=== PATIENT | female | born 1995 | race Caucasian/White ===

== ENCOUNTER 2017-09-14 12:04 | Emergency (ER) | payer SELFPAY ==
--- NOTE | 2017-09-14 13:40 | EDPHYS ---
Physician Documentation [facility] Name: Kati Albarran Age: 22 yrs Sex: Female : 1995 Arrival Date: 09/14/2017 Time: 12:07 Bed 11 Private MD: None, None ED Physician Jarvis Garcia HPI: 09/14 12:35 This 22 yrs old Female presents to ER via Ambulatory with complaints of Flu cp Symptoms. 12:35 Onset: The symptoms/episode began/occurred 4 day(s) ago. cp 12:35 Associated signs and symptoms: Pertinent positives: cough, fever, sore throat, cp Pertinent negatives: abdominal pain, constipation, diarrhea, vomiting, wheezing. 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 - Social history:: Smoking status: Patient uses tobacco products, smokes one pack cigarettes per day. - Ebola Screening: : No symptoms or risks identified at this time. ROS: 12:42 Constitutional: Positive for body aches, Negative for fever, poor PO intake. cp 12:42 Eyes: Negative for injury, pain, redness, and discharge. cp 12:42 ENT: Positive for sinus congestion, sore throat, Negative for drainage from ear(s), ear pain, difficulty swallowing, difficulty handling secretions, hoarseness. 12:42 Neck: Negative for pain with movement, pain at rest, stiffness, tenderness. 12:42 Cardiovascular: Negative for chest pain. 12:42 Respiratory: Positive for cough, Negative for shortness of breath, wheezing. 12:42 Abdomen/GI: Negative for abdominal pain, vomiting, diarrhea, constipation, anorexia, dysphagia. 12:42 Back: Negative for radiated pain. 12:42 : Negative for urinary symptoms. 12:42 Skin: Negative for cellulitis, rash. 12:42 Neuro: Negative for altered mental status, headache, weakness. 12:42 All other systems are negative. Exam: 12:48 Constitutional: The patient appears in no acute distress, alert, awake, non-toxic, well cp developed, well nourished. 12:48 Head/Face: Normocephalic, atraumatic. cp 12:48 Eyes: Periorbital structures: appear normal, Conjunctiva: normal, no exudate, no injection, Sclera: no appreciated abnormality, Lids and lashes: appear normal, bilaterally. 12:48 ENT: External ear(s): are unremarkable, Ear canal(s): are normal, clear, TM's: bulging, is not appreciated, bilaterally, dullness, bilaterally, erythema, is not appreciated, bilaterally, Nose: is normal, Mouth: Lips: moist, Oral mucosa: pink and intact, moist, Posterior pharynx: Airway: no evidence of obstruction, patent, Tonsils: no enlargement, no exudate, Uvula: midline, swelling, is not appreciated, erythema, that is mild, exudate, is not appreciated, Voice: is normal. 12:48 Neck: ROM/movement: is normal, is supple, without pain, no range of motions limitations, no meningismus, no nuchal rigidity, Lymph nodes: no appreciated lymphadenopathy. 12:48 Chest/axilla: Inspection: normal, Palpation: is normal, no crepitus, no tenderness. 12:48 Cardiovascular: Rate: tachycardic, Rhythm: regular. 12:48 Respiratory: the patient does not display signs of respiratory distress, Respirations: normal, no use of accessory muscles, no retractions, no splinting, no tachypnea, labored breathing, is not present, Breath sounds: are clear throughout, no decreased breath sounds, no stridor, no wheezing. 12:48 Abdomen/GI: Exam negative for discomfort, distension, guarding, Inspection: abdomen appears normal. 12:48 Skin: cellulitis, is not appreciated, no rash present. Vital Signs: 12:09 BP 133 / 86; Pulse 102; Resp 18 S; Temp 99.5(TE); Pulse Ox 99% on R/A; Weight 70.31 kg aa5 (R); Height 5 ft. 7 in. (170.18 cm) (R); Pain 2/10; 12:09 Body Mass Index 24.28 (70.31 kg, 170.18 cm) aa5 MDM: 12:22 Patient medically screened. cp 13:00 Differential diagnosis: URI, bronchitis, pneumonia UTI, strep throat, influenza. cp 13:38 Data reviewed: vital signs, nurses notes, lab test result(s), and as a result, I will cp discharge patient. 13:38 Counseling: I had a detailed discussion with the patient and/or guardian regarding: the cp historical points, exam findings, and any diagnostic results supporting the discharge/admit diagnosis, lab results, to return to the emergency department if symptoms worsen or persist or if there are any questions or concerns that arise at home. 09/14 12:30 Order name: Strep; Complete Time: 13:36 09/14 12:30 Order name: Influenza Screen (a \T\ B); Complete Time: 13:36 09/14 12:30 Order name: Urine Dipstick-Ancillary (obtain specimen); Complete Time: 13:27 09/14 13:14 Order name: Throat Culture [facility] 09/14 13:59 Order name: Urine Dipstick--Ancillary (enter results) 09/14 13:59 Order name: Urine --Ancillary (enter results) 09/14 12:30 Order name: Urine Test (obtain specimen); Complete Time: 13:47 cp Administered Medications: No medications were administered Disposition: 09/14/17 13:39 Discharged to Home. Impression: Acute pharyngitis. - Condition is Stable. - Discharge Instructions: Pharyngitis. - Prescriptions for Ibuprofen 800 mg Oral Tablet - take 1 tablet by ORAL route every 8 hours As needed take with food; 30 tablet. Tessalon Perles 100 mg Oral Capsule - take 1 capsule by ORAL route every 8 hours As needed; 15 capsule. - Work release form, Medication Reconciliation Form, Thank You Letter, Antibiotic Education, Prescription Opioid Use form. - Follow up: Private Physician; When: 2 - 3 days; Reason: if symptoms continue. - Problem is new. - Symptoms are unchanged. Addendum: 09/21/2017 07:12 Co-signature as Attending Physician, Jarvis Garcia MD. g s Signatures: Dispatcher Flower HospitalMargaret Wells RN RN iw Calderon, Audri, RN RN aa5 Dakota Moss PA PA Jarvis Galaviz MD MD gs Corrections: (The following items were deleted from the chart) 09/14 14:03 13:39 09/14/2017 13:39 Discharged to Home. Impression: Acute pharyngitis. Condition is iw Stable. Forms are Medication Reconciliation Form, Thank You Letter, Antibiotic Education, Prescription Opioid Use. Follow up: Private Physician; When: 2 - 3 days; Reason: if symptoms continue. Problem is new. Symptoms are unchanged. cp
--- NOTE | 2017-09-14 13:40 | ER ---
Nurse's Notes [facility] Name: Kati Albarran Age: 22 yrs Sex: Female : 1995 Arrival Date: 09/14/2017 Time: 12:07 Bed 11 Private MD: None, None Diagnosis: Acute pharyngitis Presentation: 09/14 12:08 Presenting complaint: Patient states: cough, sore throat, body aches, and low-grade aa5 fever x 4 days. Transition of care: patient was not received from another setting of care. Onset of symptoms was September 2017. Risk Assessment: Do you want to hurt yourself or someone else? Patient reports no desire to harm self or others. Initial Sepsis Screen: Does the patient meet any 2 criteria? No. Patient's initial sepsis screen is negative. Does the patient have a suspected source of infection? No. Patient's initial sepsis screen is negative. Care prior to arrival: None. 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 - Social history:: Smoking status: Patient uses tobacco products, smokes one pack cigarettes per day. - Ebola Screening: : No symptoms or risks identified at this time. Screenin:25 Abuse screen: Denies threats or abuse. Nutritional screening: No deficits noted. aa5 Tuberculosis screening: No symptoms or risk factors identified. Fall Risk None identified. Assessment: 12:20 General: Appears comfortable, Behavior is calm, cooperative, Reports fever for > 3 aa5 days. Pain: Complains of pain in throat and whole body Pain does not radiate. Pain currently is 2 out of 10 on a pain scale. Quality of pain is described as aching, Pain began 4 days ago Is continuous. Neuro: Level of Consciousness is awake, alert, obeys commands, Oriented to person, place, time, situation. Cardiovascular: Heart tones S1 S2 present Rhythm is regular. Respiratory: Reports cough x 4 days ago Airway is patent Respiratory effort is even, unlabored, Respiratory pattern is regular, symmetrical, Breath sounds are clear bilaterally. GI: No signs and/or symptoms were reported involving the gastrointestinal system. : No signs and/or symptoms were reported regarding the genitourinary system. EENT: Reports sore throat and nasal congestion. Derm: Skin is pink, warm \T\ dry. Musculoskeletal: Range of motion: intact in all extremities. Vital Signs: 12:09 BP 133 / 86; Pulse 102; Resp 18 S; Temp 99.5(TE); Pulse Ox 99% on R/A; Weight 70.31 kg aa5 (R); Height 5 ft. 7 in. (170.18 cm) (R); Pain 2/10; 12:09 Body Mass Index 24.28 (70.31 kg, 170.18 cm) aa5 ED Course: 12:07 Patient arrived in ED. sb2 12:07 None, None is Private Physician. sb2 12:09 Triage completed. aa5 12:09 Arm band placed on. aa5 12:09 Patient has correct armband on for positive identification. aa5 12:20 Natasha Dye RN is Primary Nurse. aa5 12:20 Call light in reach. aa5 12:20 Patient placed in an exam room. aa5 12:22 Dakota Moss PA is PHCP. cp 12:22 Jarvis Garcia MD is Attending Physician. cp 12:53 No provider procedures requiring assistance completed. Flu and/or RSV swab sent to lab. iw Strep swab sent to lab. Patient did not have IV access during this emergency room visit. 14:03 Primary Nurse role handed off by Natasha Dye RN 14:03 Margaret Rizzo RN is Primary Nurse. iw Administered Medications: No medications were administered Outcome: 13:39 Discharge ordered by . cp 14:00 Discharged to home ambulatory. iw 14:00 Condition: good 14:00 Discharge instructions given to patient, Instructed on discharge instructions, follow up and referral plans. Demonstrated understanding of instructions, follow-up care. 14:03 Patient left the ED. iw Signatures: Margaret Rizzo RN RN Natasha Dye, ROSELIA VELOZ aa5 Dakota Moss PA PA cp Tila Robert sb2
[2017-09-14 14:16] LABS: Urine Blood NEGATIVE (NEG); Urine Glucose NEGATIVE (NEG); Urine Protein NEGATIVE (NEG); Urine Specific Gravity 1.015 (1.005-1.030)
== END 2017-09-14 14:03 | disposition home or self-care (01) ==
LOC: ER 12:04
DX: J02.9 Acute pharyngitis, unspecified (principal); F17.210 Nicotine dependence, cigarettes, uncomplicated
CPT/HCPCS: 81003; 81025; 87070; 87081; 87804; 99283

== ENCOUNTER 2017-12-21 10:14 | Emergency (ER) | payer SELFPAY ==
--- NOTE | 2017-12-21 10:36 | EDPHYS ---
Physician Documentation [facility] Name: Kati Albarran Age: 22 yrs Sex: Female : 1995 Arrival Date: 12/21/2017 Time: 10:16 Bed 24 Private MD: ED Physician Tristin Garcia HPI: 12/21 10:33 This 22 yrs old Female presents to ER via Ambulatory with complaints of Wrist ma2 Pain. 10:33 The patient or guardian reports pain. The complaints affect the left wrist diffusely. ma2 Onset: The symptoms/episode began/occurred gradually, 3 day(s) ago. Associated signs and symptoms: Pertinent negatives: cyanosis distally, decreased sensation distally, fever, nausea, numbness distally, tingling distally, vomiting. Compartment Syndrome negative for numbness, tingling. The patient has experienced similar episodes in the past. no trauma. 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 - Social history:: Smoking status: Patient uses tobacco products, smokes 1.5 packs per day, Patient/guardian denies using alcohol, street drugs, The patient lives with family. - Ebola Screening: : No symptoms or risks identified at this time. - Family history:: not pertinent. ROS: 10:33 Constitutional: Negative for fever, chills, and weight loss, Cardiovascular: Negative ma2 for chest pain, palpitations, and edema, Respiratory: Negative for shortness of breath, cough, wheezing, and pleuritic chest pain, Abdomen/GI: Negative for abdominal pain, nausea, diarrhea, and constipation, Back: Negative for injury and pain. 10:33 MS/extremity: Positive for pain, Negative for injury or acute deformity, bite, decreased range of motion, swelling, warmth. 10:33 All other systems are negative. Exam: 10:33 Hand exam: ROM: intact in all extremities, Circulation is intact in all extremities. ma2 sensation intact. Compartment Syndrome exam of affected extremity: is normal. severe pain. 10:33 Skin: 10:33 Constitutional: This is a well developed, well nourished patient who is awake, alert, and in no acute distress. Chest/axilla: Normal chest wall appearance and motion. Nontender with no deformity. No lesions are appreciated. Cardiovascular: Regular rate and rhythm with a normal S1 and S2. No gallops, murmurs, or rubs. Normal PMI, no JVD. No pulse deficits. Respiratory: Lungs have equal breath sounds bilaterally, clear to auscultation and percussion. No rales, rhonchi or wheezes noted. No increased work of breathing, no retractions or nasal flaring. Abdomen/GI: Soft, non-tender, with normal bowel sounds. No distension or tympany. No guarding or rebound. No evidence of tenderness throughout. MS/ Extremity: Pulses equal, no cyanosis. Neurovascular intact. Full, normal range of motion. Neuro: Awake and alert, GCS 15, oriented to person, place, time, and situation. Cranial nerves II-XII grossly intact. Motor strength 5/5 in all extremities. Sensory grossly intact. Cerebellar exam normal. Normal gait. Vital Signs: 10:21 BP 134 / 91; Pulse 102; Resp 18; Temp 97.7(TE); Pulse Ox 99% on R/A; Weight 77.11 kg; sv Height 5 ft. 7 in. (170.18 cm); Pain 2/10; 10:21 Body Mass Index 26.63 (77.11 kg, 170.18 cm) sv MDM: 10:33 Differential diagnosis: contusion, abrasion, tendonitis. Data reviewed: vital signs, ma2 nurses notes, EMS record. Counseling: I had a detailed discussion with the patient and/or guardian regarding: the historical points, exam findings, and any diagnostic results supporting the discharge/admit diagnosis, the presence of at least one elevated blood pressure reading (>120/80) during this emergency department visit, the need for outpatient follow up. 10:35 Patient medically screened. ma2 Administered Medications: No medications were administered Disposition: 12/21/17 10:35 Discharged to Home. Impression: Pain in left wrist. - Condition is Stable. - Discharge Instructions: Joint Pain. - Prescriptions for Tylenol- Codeine #3 300-30 mg Oral Tablet - take 2 tablet by ORAL route every 6 hours As needed; 30 tablet. - Medication Reconciliation Form, Thank You Letter, Antibiotic Education, Prescription Opioid Use form. - Follow up: Private Physician; When: Tomorrow; Reason: Continuance of care. Signatures: Gia Guadalupe RN RN Alisha Fournier RN RN hb Alzahri, Mohammad, MD MD ma2 Corrections: (The following items were deleted from the chart) 10:57 10:35 12/21/2017 10:35 Discharged to Home. Impression: Pain in left wrist. Condition is hb Stable. Forms are Medication Reconciliation Form, Thank You Letter, Antibiotic Education, Prescription Opioid Use. Follow up: Private Physician; When: Tomorrow; Reason: Continuance of care. ma2
--- NOTE | 2017-12-21 10:36 | ER ---
Nurse's Notes [facility] Name: Kati Albarran Age: 22 yrs Sex: Female : 1995 Arrival Date: 12/21/2017 Time: 10:16 Bed 24 Private MD: Diagnosis: Pain in left wrist Presentation: 12/21 10:17 Presenting complaint: Patient states: left wrist pain x 2 weeks. c/o decreased ROM. sv Transition of care: patient was not received from another setting of care. Onset of symptoms was December 07, 2017. Care prior to arrival: None. 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 - Social history:: Smoking status: Patient uses tobacco products, smokes 1.5 packs per day, Patient/guardian denies using alcohol, street drugs, The patient lives with family. - Ebola Screening: : No symptoms or risks identified at this time. - Family history:: not pertinent. Screenin:24 Abuse screen: Denies threats or abuse. Denies injuries from another. Nutritional aj1 screening: No deficits noted. Tuberculosis screening: No symptoms or risk factors identified. Assessment: 10:24 General: Appears in no apparent distress. comfortable, Behavior is calm, cooperative, aj1 appropriate for age. Pain: Complains of pain in left wrist Pain does not radiate. Pain currently is 2 out of 10 on a pain scale. at worst was 6 out of 10 on a pain scale. Quality of pain is described as aching, sharp, shooting, Pain began 2 weeks ago, but has gotten worse over the past 5 days Is continuous, Alleviated by rest, Aggravated by increased activity, repositioning, weight bearing. Neuro: Level of Consciousness is awake, alert, obeys commands, Oriented to person, place, time, situation, Gait is steady, Speech is normal, Facial symmetry appears normal. Cardiovascular: Patient's skin is warm and dry. Respiratory: Airway is patent Respiratory effort is even, unlabored, Respiratory pattern is regular, symmetrical. GI: No signs and/or symptoms were reported involving the gastrointestinal system. : No signs and/or symptoms were reported regarding the genitourinary system. EENT: No signs and/or symptoms were reported regarding the EENT system. Derm: No signs and/or symptoms reported regarding the dermatologic system. Skin is pink, warm \T\ dry. normal. Musculoskeletal: Range of motion: limited in left wrist Swelling absent Reports pain in left wrist Denies injury to left wrist. Vital Signs: 10:21 BP 134 / 91; Pulse 102; Resp 18; Temp 97.7(TE); Pulse Ox 99% on R/A; Weight 77.11 kg; sv Height 5 ft. 7 in. (170.18 cm); Pain 2/10; 10:21 Body Mass Index 26.63 (77.11 kg, 170.18 cm) sv ED Course: 10:16 Patient arrived in ED. as 10:17 Arm band placed on Patient placed in an exam room, on a stretcher, on pulse oximetry. sv 10:21 Triage completed. sv 10:23 Tristin Garcia MD is Attending Physician. ma2 10:24 Renate Fox, RN is Primary Nurse. aj1 10:24 Patient has correct armband on for positive identification. aj1 10:24 No provider procedures requiring assistance completed. aj1 Administered Medications: No medications were administered Outcome: 10:35 Discharge ordered by . ma2 10:57 Patient left the ED. Signatures: Renate Fox RN RN ajGia Garza RN RN Thi Moore Heather, RN RN Tristin Garcia MD MD ma2
== END 2017-12-21 10:57 | disposition home or self-care (01) ==
LOC: ER 10:14
DX: M25.532 Pain in left wrist (principal); Z72.0 Tobacco use
CPT/HCPCS: 99282

== ENCOUNTER 2017-12-24 10:10 | Emergency (ER) | payer SELFPAY ==
--- NOTE | 2017-12-24 10:20 | EDPHYS ---
Physician Documentation [facility] Name: Kati Albarran Age: 22 yrs Sex: Female : 1995 Arrival Date: 12/24/2017 Time: 10:12 Bed 12 Private MD: None, None ED Physician Enzo Trinidad HPI: 12/24 10:22 This 22 yrs old Female presents to ER via Ambulatory with complaints of Hand kb Pain. 10:22 The patient or guardian reports decreased range of motion, pain, tenderness. The kb complaints affect the left wrist diffusely. Context: resulted from an unknown cause. Onset: The symptoms/episode began/occurred 2 week(s) ago, and became worse 6 day(s) ago. Modifying factors: The symptoms are alleviated by nothing, the symptoms are aggravated by movement. Associated signs and symptoms: The patient has no apparent associated signs or symptoms. The patient has not experienced similar symptoms in the past. The patient has been recently seen at the [facility] Emergency Department. Pt states she started having soreness to left wrist 2 weeks ago. 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 Was seen here and given Tylenol with codeine, but still having pain. 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 - Social history:: Smoking status: Patient/guardian denies using tobacco. - Ebola Screening: : Patient negative for fever greater than or equal to 101.5 degrees Fahrenheit, and additional compatible Ebola Virus Disease symptoms Patient denies exposure to infectious person Patient denies travel to an Ebola-affected area in the 21 days before illness onset No symptoms or risks identified at this time. ROS: 10:20 Constitutional: Negative for fever, chills, and weight loss, Cardiovascular: Negative kb for chest pain, palpitations, and edema, Respiratory: Negative for shortness of breath, cough, wheezing, and pleuritic chest pain, Abdomen/GI: Negative for abdominal pain, nausea, vomiting, diarrhea, and constipation, Back: Negative for injury and pain, Skin: Negative for injury, rash, and discoloration, Neuro: Negative for headache, weakness, numbness, tingling, and seizure. 10:20 MS/extremity: Positive for decreased range of motion, pain, of the left wrist. Exam: 10:20 Constitutional: This is a well developed, well nourished patient who is awake, alert, kb and in no acute distress. Head/Face: Normocephalic, atraumatic. Chest/axilla: Normal chest wall appearance and motion. Nontender with no deformity. No lesions are appreciated. Cardiovascular: Regular rate and rhythm with a normal S1 and S2. No gallops, murmurs, or rubs. Normal PMI, no JVD. No pulse deficits. Respiratory: Lungs have equal breath sounds bilaterally, clear to auscultation and percussion. No rales, rhonchi or wheezes noted. No increased work of breathing, no retractions or nasal flaring. Abdomen/GI: Soft, non-tender, with normal bowel sounds. No distension or tympany. No guarding or rebound. No evidence of tenderness throughout. Back: No spinal tenderness. No costovertebral tenderness. Full range of motion. Skin: Warm, dry with normal turgor. Normal color with no rashes, no lesions, and no evidence of cellulitis. Neuro: Awake and alert, GCS 15, oriented to person, place, time, and situation. Cranial nerves II-XII grossly intact. Motor strength 5/5 in all extremities. Sensory grossly intact. Cerebellar exam normal. Normal gait. 10:20 Musculoskeletal/extremity: Extremities: grossly normal except: noted in the left wrist: decreased ROM, pain, ROM: limited active range of motion due to pain, in the left wrist, Circulation is intact in all extremities. Sensation intact. Vital Signs: 10:18 BP 142 / 91; Pulse 98; Resp 17; Temp 98.0; Pulse Ox 100% on R/A; Weight 77.11 kg; aj Height 5 ft. 7 in. (170.18 cm); 10:18 Body Mass Index 26.63 (77.11 kg, 170.18 cm) aj MDM: 10:20 Patient medically screened. kb 10:22 Data reviewed: vital signs, nurses notes. Data interpreted: Pulse oximetry: on room air kb is 100 %. Interpretation: normal. Counseling: I had a detailed discussion with the patient and/or guardian regarding: the historical points, exam findings, and any diagnostic results supporting the discharge/admit diagnosis, the need for outpatient follow up, a orthopedic surgeon, to return to the emergency department if symptoms worsen or persist or if there are any questions or concerns that arise at home. 10:24 ED course: Educated on use of antiinflammatories for pain, wrist brace and follow up kb with ortho. Administered Medications: No medications were administered Disposition: 15:59 Co-signature as Attending Physician, Enzo Trinidad MD. rn Disposition: 12/24/17 10:20 Discharged to Home. Impression: Pain in left wrist. - Condition is Stable. - Discharge Instructions: Musculoskeletal Pain, Wrist Pain, [id number]. - Medication Reconciliation Form, Thank You Letter, Antibiotic Education, Prescription Opioid Use form. - Follow up: Emergency Department; When: As needed; Reason: Worsening of condition. Follow up: Private Physician; When: 2 - 3 days; Reason: Recheck today's complaints, Continuance of care, Re-evaluation by your physician. Signatures: Vilma Cristina, PRIVATE SECRETARY-C PRIVATE SECRETARY-Ckb Kelsea Brantley RN RN Enzo Richard MD MD rn diabetes educator: (The following items were deleted from the chart) 10:24 10:20 12/24/2017 10:20 Discharged to Home. Impression: Pain in left wrist. Condition is aj Stable. Forms are Medication Reconciliation Form, Thank You Letter, Antibiotic Education, Prescription Opioid Use. Follow up: Emergency Department; When: As needed; Reason: Worsening of condition. Follow up: Private Physician; When: 2 - 3 days; Reason: Recheck today's complaints, Continuance of care, Re-evaluation by your physician. kb
--- NOTE | 2017-12-24 10:20 | ER ---
Nurse's Notes [facility] Name: Kati Albarran Age: 22 yrs Sex: Female : 1995 Arrival Date: 12/24/2017 Time: 10:12 Bed 12 Private MD: None, None Diagnosis: Pain in left wrist Presentation: 12/24 10:16 Presenting complaint: Patient states: "I was here 3 days ago for my wrist pain and they aj told me if it didn't get better to come back for an MRI." Patient has not followed up. Presents with left wrist abner wrapped. Transition of care: patient was not received from another setting of care. Onset of symptoms was December 19, 2017. Risk Assessment: Do you want to hurt yourself or someone else? Patient reports no desire to harm self or others. Initial Sepsis Screen: Does the patient meet any 2 criteria? No. Patient's initial sepsis screen is negative. Does the patient have a suspected source of infection? No. Patient's initial sepsis screen is negative. Care prior to arrival: None. 10:16 Method Of Arrival: Ambulatory 10:16 Acuity: CONNER 5 Triage Assessment: 10:18 General: Appears in no apparent distress. comfortable, Behavior is calm, cooperative, aj appropriate for age. Pain: Complains of pain in left wrist. Neuro: Level of Consciousness is awake, alert, obeys commands, Oriented to person, place, time, situation, Appropriate for age. Respiratory: Airway is patent Respiratory effort is even, unlabored, Respiratory pattern is regular, symmetrical. Derm: Skin is intact, is healthy with good turgor, Skin is pink, warm \\T\\ dry. normal. Musculoskeletal: Circulation, motion, and sensation intact. Range of motion: intact in all extremities. 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 - Social history:: Smoking status: Patient/guardian denies using tobacco. - Ebola Screening: : Patient negative for fever greater than or equal to 101.5 degrees Fahrenheit, and additional compatible Ebola Virus Disease symptoms Patient denies exposure to infectious person Patient denies travel to an Ebola-affected area in the 21 days before illness onset No symptoms or risks identified at this time. Screenin:24 Abuse screen: Denies threats or abuse. Denies injuries from another. Nutritional aj screening: No deficits noted. Tuberculosis screening: No symptoms or risk factors identified. Fall Risk None identified. Assessment: 10:24 Reassessment: No changes from previously documented assessment. aj Vital Signs: 10:18 BP 142 / 91; Pulse 98; Resp 17; Temp 98.0; Pulse Ox 100% on R/A; Weight 77.11 kg; aj Height 5 ft. 7 in. (170.18 cm); 10:18 Body Mass Index 26.63 (77.11 kg, 170.18 cm) aj ED Course: 10:12 Patient arrived in ED. mr 10:13 None, None is Private Physician. mr 10:17 Triage completed. aj 10:18 Arm band placed on right wrist. Patient placed in an exam room. aj 10:19 Vilma Cristina FNP-C is [facility]. kb 10:19 Enzo Trinidad MD is Attending Physician. kb 10:24 Kelsea Brantley, RN is Primary Nurse. aj 10:24 Patient has correct armband on for positive identification. aj 10:24 No provider procedures requiring assistance completed. IV discontinued. Abner wrap to aj left wrist. Administered Medications: No medications were administered Outcome: 10:20 Discharge ordered by . kb 10:24 Discharged to home ambulatory. aj 10:24 Condition: good 10:24 Discharge instructions given to patient, Instructed on discharge instructions, follow up and referral plans. Demonstrated understanding of instructions, follow-up care. 10:24 Patient left the ED. aj Signatures: Vilma Cristina FNP-C FNP-Kelsea Culp, RN RN darlene Sheyla Tavarez mr
== END 2017-12-24 10:24 | disposition home or self-care (01) ==
LOC: ER 10:10
DX: M25.532 Pain in left wrist (principal)
CPT/HCPCS: 99283

== ENCOUNTER 2018-03-16 12:13 | Emergency (ER) | payer BC, SELFPAY ==
[2018-03-16 13:22] LABS: Absolute Lymphocytes (CBC) 2.4 K/uL (0.7-4.9); Absolute Monocytes 0.5 K/uL (0.1-1.3); Absolute Neutrophil 4.4 K/uL (1.8-8.0); Basophils % 0.5 % (0-1.3); Hematocrit 45.3 % (36.0-45.0); Lymphocytes % 32.2 % (15.3-44.8); MPV 11.1 fL (7.6-11.3); Monocytes % 6.6 % (3.3-12.3)
[2018-03-16 13:25] LABS: Protime INR 0.93
[2018-03-16 13:38] LABS: ALT/SGPT 21 U/L (12-78); AST/SGOT 15 U/L (15-37); Albumin 4.5 g/dL (3.4-5.0); Alkaline Phosphatase 38 U/L (45-117); BUN Blood Urea Nitrogen 6 mg/dL (7-18); Bicarbonate 27 mmol/L (21-32); Bilirubin Direct < 0.1 mg/dL (0-0.2); Bilirubin Total 0.4 mg/dL (0.2-1.0); Glucose Level 97 mg/dL (74-106); Potassium 3.4 mmol/L (3.5-5.1); Sodium Level 141 mmol/L (136-145)
[2018-03-16 14:09] LABS: Barbiturates NEGATIVE (NEGATIVE); Benzodiazepines NEGATIVE (NEGATIVE); Cocaine NEGATIVE (NEGATIVE); METHAMPHETAM NEGATIVE (NEGATIVE); Methadone NEGATIVE (NEGATIVE); Opiates NEGATIVE (NEGATIVE); Phencyclidine NEGATIVE (NEGATIVE); THC Cannibis NEGATIVE (NEGATIVE)
[2018-03-16 14:10] LABS: Urine Blood NEGATIVE (NEG); Urine Glucose NEGATIVE (NEG); Urine Protein NEGATIVE (NEG)
--- NOTE | 2018-03-16 15:13 | ER ---
Nurse's Notes [facility] Name: Kati Albarran Age: 23 yrs Sex: Female : 1995 Arrival Date: 03/16/2018 Time: 12:14 Bed 8 Private MD: None, None Diagnosis: Suicidal ideations Presentation: 03/16 12:21 Presenting complaint: Patient states: has recently had 3 deaths in the family, + sv depression, suicidal ideation with no plan but feels like she will do something to herself. Denies homicidal ideation. Pt reports she called [facility] before [facility] and has an appt on 04/02/18 but feels like she cannot wait to get help until then. Transition of care: patient was not received from another setting of care. Onset of symptoms was March 16, 2018. Risk Assessment: Do you want to hurt yourself or someone else? Patient reports desire/thoughts of hurting themselves or someone else. Provider notified. Initial Sepsis Screen: Does the patient meet any 2 criteria? No. Patient's initial sepsis screen is negative. Does the patient have a suspected source of infection? No. Patient's initial sepsis screen is negative. Care prior to arrival: None. 12:21 Method Of Arrival: Ambulatory sv 12:21 Acuity: CONNER 2 sv Triage Assessment: 12:45 General: Appears in no apparent distress. comfortable, well developed, Behavior is sv cooperative, appropriate for age, anxious. Pain: Denies pain. EENT: No signs and/or symptoms were reported regarding the EENT system. Neuro: Level of Consciousness is awake, alert, obeys commands, Oriented to person, place, time, situation, Moves all extremities. Full function Gait is steady, Speech is normal. Respiratory: Respiratory effort is even, unlabored, Respiratory pattern is regular, symmetrical. Derm: Skin is pink, warm \T\ dry. Musculoskeletal: Range of motion: intact in all extremities. 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 - Social history:: Smoking status: Patient uses tobacco products, smokes 1.5 packs per day, Patient uses alcohol, occasionally. Patient/guardian denies using street drugs, the patient reports quitting approximately .1 years ago. - Family history:: not pertinent. - Ebola Screening: : No symptoms or risks identified at this time. - Hospitalizations: : No recent hospitalization is reported. Screenin:31 Abuse screen: Denies threats or abuse. Nutritional screening: No deficits noted. tw2 Tuberculosis screening: No symptoms or risk factors identified. Fall Risk None identified. Assessment: 12:50 Reassessment: Pt's Aunt Aurelia Stevens [phone]. sv 14:17 Reassessment: Patient appears in no apparent distress at this time. No changes from sv previously documented assessment. Patient and/or family updated on plan of care and expected duration. Pain level reassessed. Patient is alert, oriented x 3, equal unlabored respirations, skin warm/dry/pink. 15:15 Reassessment: Nurse to Nurse report given to Harvey Harrison RN at [facility]. Doc to Doc given to Dr. Quinonez by Dr. Trinidad, awaiting administrative approval. 15:40 Reassessment: Patient appears in no apparent distress at this time. No changes from sv previously documented assessment. Patient and/or family updated on plan of care and expected duration. Pain level reassessed. Patient is alert, oriented x 3, equal unlabored respirations, skin warm/dry/pink. 16:14 Reassessment: Patient appears in no apparent distress at this time. No changes from sv previously documented assessment. Patient and/or family updated on plan of care and expected duration. Pain level reassessed. Patient is alert, oriented x 3, equal unlabored respirations, skin warm/dry/pink. Psych: 12:20 Interventions: Removed personal items and placed in bag. Patient placed in hospital tw2 gown. 12:45 Subjective: Patient's mood is sad, Delusions are denied, Hallucinations are denied sv Having thoughts of suicide. Denies suicidal plan. Objective: Patient is cooperative, Speech is normal, Affect is appropriate. Suicide Risk Assessment: Sad Person Scale: Sex of patient: Female: Score 0 points. Age of patient: Score 1 point if patient 15-34. Depression: Score 1 point if signs of depression are present. Previous Attempt: Score 1 point if patient has previously attempted suicide. Substance Abuse: Score 1 point if patient abuses alcohol or drugs. Rational Thinking: Score 0 point if patient has rational thinking. Social Support: Score 0 if social support is present/available. Organized Plan: Score 0 if patient did not have an organized plan in place. Relationship: Score 0 point if patient has a spouse or domestic partner. Chronic Sickness: Score 0 point if patient does not have a chronic illness, debilitating, or severe disorder. TOTAL POINTS: If total points are 3-4, proposed clinical action is close follow-up/consider hospitalization. Safety Checks: Personal items have been removed. Door is open. No visitors are present at this time. Patient uses 2 mixed drinks with vodka of liquor, occassionally Last use was 1 days ago. Patient does not have a history of DTs. Commitment: Patient will be a voluntary commitment. Vital Signs: 12:45 BP 135 / 99; Pulse 111; Resp 20; Temp 98.7; Pulse Ox 100% ; Weight 74.84 kg; Height 5 sv ft. 7 in. (170.18 cm); Pain 0/10; 14:23 BP 119 / 80 LA Supine (auto/lg); Pulse 84; Resp 18; Pulse Ox 98% on R/A; ag 12:45 Body Mass Index 25.84 (74.84 kg, 170.18 cm) sv ED Course: 12:14 Patient arrived in ED. sb2 12:15 None, None is Private Physician. sb2 12:18 Gia Guadalupe, RN is Primary Nurse. sv 12:19 Enzo Trinidad MD is Attending Physician. rn 12:20 Arm band placed on. tw2 12:44 EKG done, by server support technician. reviewed by Enzo Trinidad MD. vh 12:47 Safety checks: Items removed: yes. Door open/sign placed on door: yes. Family/friend ag present: no. Sitter present: Yes. Patient has correct armband on for positive identification. Placed in gown. Bed in low position. Valuables put in a patients belonging bag. 12:48 Triage completed. sv 12:55 Initial lab(s) drawn, by me, sent to lab. Inserted saline lock: 20 gauge in left sv antecubital area, using aseptic technique. Blood collected. Flushed left antecubital with 5 ml normal saline. 13:01 Safety checks: Items removed: yes. Door open/sign placed on door: yes. Family/friend ag present: no. Sitter present: Yes. 13:15 Safety checks: Items removed: yes. Door open/sign placed on door: yes. Family/friend ag present: no. Sitter present: Yes. 13:30 Safety checks: Items removed: yes. Door open/sign placed on door: yes. Family/friend ag present: no. Sitter present: Yes. 13:42 Assisted to bathroom. ag 13:45 Safety checks: Items removed: yes. Door open/sign placed on door: yes. Family/friend ag present: no. Sitter present: Yes. 14:00 Safety checks: Items removed: yes. Door open/sign placed on door: yes. Family/friend ag present: no. Sitter present: Yes. 14:15 Safety checks: Items removed: yes. Door open/sign placed on door: yes. Family/friend ag present: no. Sitter present: Yes. 14:18 faxed the patient records to the following facilities in the attempt to transfer; [facility]/ [facility]/ [facility]/ [facility]/ [facility]/ [facility]/ and [facility]. 14:30 Safety checks: Items removed: yes. Door open/sign placed on door: yes. Family/friend ag present: no. Sitter present: Yes. 14:45 Safety checks: Items removed: yes. Door open/sign placed on door: yes. Family/friend sv present: no. Sitter present: Yes. 15:00 Safety checks: Items removed: yes. Door open/sign placed on door: yes. Family/friend sv present: no. Sitter present: Yes. 15:09 nurse to nurse given to [facility]. eb 15:12 Dr. Quinonez from [facility] connected with ED doc for patient transfer consulation. eb 15:14 administrative approval given by Mario Zaidi at [facility]. eb 15:15 Safety checks: Items removed: yes. Door open/sign placed on door: yes. Family/friend ag present: no. Sitter present: Yes. 15:23 Patient did not have IV access during this emergency room visit. IV discontinued, ag intact, bleeding controlled, No redness/swelling at site. Pressure dressing applied. 15:25 Diet: Patient given a regular meal tray. Patient given snack. Patient given juice. ag Tolerated well. 15:30 Safety checks: Items removed: yes. Door open/sign placed on door: yes. Family/friend sv present: no. Sitter present: Yes. 15:33 Valuables returned to the patient for transfer. ag 15:45 Safety checks: Items removed: yes. Door open/sign placed on door: yes. Family/friend ag present: no. Sitter present: Yes. 16:00 Safety checks: Items removed: yes. Door open/sign placed on door: yes. Family/friend ag present: no. Sitter present: Yes. 16:14 transfer transportation to receiving facility. sv 16:15 Safety checks: Items removed: yes. Door open/sign placed on door: yes. Family/friend ag present: no. Sitter present: Yes. 16:33 No provider procedures requiring assistance completed. sv 16:36 IV discontinued, intact, bleeding controlled, No redness/swelling at site. Pressure sv dressing applied. Administered Medications: No medications were administered Outcome: 15:11 Discharge ordered by MD. rn 15:12 ER care complete, transfer ordered by MD. rn 16:33 Transferred by ground EMS [place]. [place] [facility] given to [place]. 16:33 Condition: stable 16:33 Instructed on the need for transfer. 16:46 Patient left the ED. sv Signatures: Gia Guadalupe, RN ROSELIA Enzo Trinidad MD MD rn Smirch, Shelby, RN RN Khushboo Crews Leilani Roman Tara, RN RN 2 Tila [facility] [place] [employer]: (The following items were deleted from the chart) 13:04 12:21 Presenting complaint: Patient states: has recently had 3 deaths in the family, + sv depression, suicidal ideation with no plan but feels like she will do something to herself. Denies homicidal ideation. sv 13:42 13:19 Safety checks: Items removed: yes. Door open/sign placed on door: yes. ag Family/friend present: no. Sitter present: Yes. ag 15:39 14:46 Safety checks: Items removed: yes. Door open/sign placed on door: yes. sv Family/friend present: no. Sitter present: Yes. ag 15:39 15:02 Safety checks: Items removed: yes. Door open/sign placed on door: yes. sv Family/friend present: no. Sitter present: Yes. ag 15:33 Safety checks: Items removed: yes. Door open/sign placed on door: yes. sv Family/friend present: no. Sitter present: Yes. ag
--- NOTE | 2018-03-16 15:13 | EDPHYS ---
Physician Documentation [facility] Name: Kati Albarran Age: 23 yrs Sex: Female : 1995 Arrival Date: 03/16/2018 Time: 12:14 Bed 8 Private MD: None, None ED Physician Enzo Trinidad HPI: 03/16 12:33 This 23 yrs old Female presents to ER via Unassigned with complaints of rn Suicidal Ideation. 12:33 The patient presents to the emergency department with depression, suicide ideation. rn Onset: The symptoms/episode began/occurred at an unknown time. Associated signs and symptoms: Pertinent positives; depression, suicide ideation, Pertinent negatives: delusions, hallucinations, homicidal ideation. Severity of symptoms: At their worst the symptoms were moderate in the emergency department the symptoms are unchanged. The patient has experienced similar episodes in the past. The patient has not recently seen a physician. Reports 3 recent deaths in family, also years of depression, no hallucinations. Has attempted suicide in past, but nothing recent.. 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 - Social history:: Smoking status: Patient uses tobacco products, smokes 1.5 packs per day, Patient uses alcohol, occasionally. Patient/guardian denies using street drugs, the patient reports quitting approximately .1 years ago. - Family history:: not pertinent. - Ebola Screening: : No symptoms or risks identified at this time. - Hospitalizations: : No recent hospitalization is reported. ROS: 12:33 Constitutional: Negative for fever, chills, and weight loss, Eyes: Negative for injury, rn pain, redness, and discharge, Neck: Negative for injury, pain, and swelling, Cardiovascular: Negative for chest pain, palpitations, and edema, Respiratory: Negative for shortness of breath, cough, wheezing, and pleuritic chest pain, Abdomen/GI: Negative for abdominal pain, nausea, vomiting, diarrhea, and constipation, MS/Extremity: Negative for injury and deformity, Skin: Negative for injury, rash, and discoloration, Neuro: Negative for headache, weakness, numbness, tingling, and seizure. Exam: 12:33 Constitutional: This is a well developed, well nourished patient who is awake, alert, rn and in no acute distress. Head/Face: Normocephalic, atraumatic. Eyes: Pupils equal round and reactive to light, extra-ocular motions intact. Lids and lashes normal. Conjunctiva and sclera are non-icteric and not injected. Cornea within normal limits. Periorbital areas with no swelling, redness, or edema. Skin: Warm, dry with normal turgor. Normal color with no rashes, no lesions, and no evidence of cellulitis. Neuro: Awake and alert, GCS 15, oriented to person, place, time, and situation. Cranial nerves II-XII grossly intact. Motor strength 5/5 in all extremities. Sensory grossly intact. Cerebellar exam normal. Normal gait. Psych: Awake, alert, with orientation to person, place and time. Tearful Vital Signs: 12:45 BP 135 / 99; Pulse 111; Resp 20; Temp 98.7; Pulse Ox 100% ; Weight 74.84 kg; Height 5 sv ft. 7 in. (170.18 cm); Pain 0/10; 14:23 BP 119 / 80 LA Supine (auto/lg); Pulse 84; Resp 18; Pulse Ox 98% on R/A; ag 12:45 Body Mass Index 25.84 (74.84 kg, 170.18 cm) sv MDM: 12:19 Patient medically screened. rn 15:10 Differential diagnosis: depression. Data reviewed: vital signs, nurses notes, lab test rn result(s), EKG, and as a result, I will discharge patient. Counseling: I had a detailed discussion with the patient and/or guardian regarding: the historical points, exam findings, and any diagnostic results supporting the discharge/admit diagnosis, lab results, the need for outpatient follow up, to return to the emergency department if symptoms worsen or persist or if there are any questions or concerns that arise at home. Special discussion: I discussed with the patient/guardian in detail that at this point there is no indication for admission to the hospital. It is understood, however, that if the symptoms persist or worsen the patient needs to return immediately for re-evaluation. 03/16 12:30 Order name: Acetaminophen; Complete Time: 14:16 rn 03/16 12:30 Order name: Basic Metabolic Panel; Complete Time: 14:16 rn 03/16 12:30 Order name: CBC with Diff; Complete Time: 14:16 rn 03/16 12:30 Order name: ETOH Level; Complete Time: 14:16 rn 03/16 12:30 Order name: Hepatic Function; Complete Time: 14:16 rn 03/16 12:30 Order name: PT-INR; Complete Time: 14:16 rn 03/16 12:30 Order name: Urine Test (obtain specimen); Complete Time: 13:48 rn 03/16 12:30 Order name: Ptt, Activated; Complete Time: 14:16 rn 03/16 12:30 Order name: Salicylate; Complete Time: 14:16 rn 03/16 12:30 Order name: Urine Drug Screen; Complete Time: 14:16 rn 03/16 12:30 Order name: EKG; Complete Time: 12:32 rn 03/16 13:50 Order name: Urine Dipstick--Ancillary (enter results); Complete Time: 14:16 eb 03/16 13:50 Order name: Urine --Ancillary (enter results); Complete Time: 14:16 eb 03/16 14:53 Order name: Diet Regular; Complete Time: 14:54 ag 03/16 12:30 Order name: EKG - Nurse/Tech; Complete Time: 13:02 rn 03/16 12:30 Order name: IV Saline Lock; Complete Time: 13:02 rn 03/16 12:30 Order name: Labs collected and sent; Complete Time: 13:03 rn 03/16 12:30 Order name: Urine Dipstick-Ancillary (obtain specimen); Complete Time: 13:48 rn Administered Medications: No medications were administered Disposition: 03/16/18 15:12 Transfer ordered to [facility]. Diagnosis is Suicidal ideations. - Reason for transfer: Higher level of care. - Accepting physician is Dr. Quinonez. - Condition is Stable. - Problem is an ongoing problem. - Symptoms are unchanged. Signatures: Dispatcher [employer] Gia Barney RN RN sv Nieto, Roman, MD MD wax pattern assembler: (The following items were deleted from the chart) 15:11 15:11 03/16/2018 15:11 Discharged to Home. Impression: Suicidal ideations. Condition is rn Stable. Forms are Medication Reconciliation Form, Thank You Letter, Antibiotic Education, Prescription Opioid Use. Follow up: Private Physician; When: As needed; Reason: Recheck today's complaints, Re-evaluation by your physician. Problem is an ongoing problem. Symptoms are unchanged. rn 15:13 15:12 03/16/2018 15:12 Transfer ordered to Psych Facility. Diagnosis is Suicidal rn ideations. Reason for transfer: Higher level of care. Accepting physician is . Condition is Stable. Problem is an ongoing problem. Symptoms are unchanged. rn 16:46 15:13 03/16/2018 15:12 Transfer ordered to Psych Facility. Diagnosis is Suicidal sv ideations. Reason for transfer: Higher level of care. Accepting physician is Dr. Quinonez. Condition is Stable. Problem is an ongoing problem. Symptoms are unchanged. rn
--- NOTE | 2018-03-16 22:57 | EKG ---
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
== END 2018-03-16 16:46 ==
LOC: ER 12:13
DX: R45.851 Suicidal ideations (principal); F17.210 Nicotine dependence, cigarettes, uncomplicated
CPT/HCPCS: 36415; 80048; 80076; 80307; 80320; 80329; 81003; 81025; 85025; 85610; 85730; 93005; 99285